=== PATIENT | female | born 1960 | race Caucasian/White ===

== ENCOUNTER → 2018-09-28 | Outpatient (REF) | payer OTHER ==
[2018-09-28 14:52] LABS: FOLLICLE STIMULATING HORMONE 24.6 mIU/mL; LUTEINIZING HORMONE 12.9 mIU/mL
== END ==
LOC: M LAB REF 11:51
DX: N92.6 Irregular menstruation, unspecified (principal)

== ENCOUNTER 2019-01-14 08:13 | Day surgery (SDC) | payer OTHER ==
--- NOTE | 2018-12-27 14:32 | CR ---
DATE OF CONSULTATION: 12/21/2018 PREOPERATIVE CONSULTATION FOR: Dr. De Jesus for robotic-assisted hysterectomy 01/14/2019. Dear Dr. De Jesus: Thank you for asking me to see . Winifred Roach in preoperative consultation. She is, as you know, a 58-year-old female with a past medical history of diabetes, hypertension, obesity, presenting with menorrhagia and findings of large uterine fibroids. 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 She is battling upper respiratory infection (URI) but no fevers or chills; only some white phlegm production with some fullness in her ears, throat, sinus. She has been using vitamin C and ProAir. Patient reports she did get her flu shot. Patient has known hypertension. Denies any chest pain, palpitations, syncope, or presyncope. Patient has diabetes type 2. She admits noncompliance with diet and exercise. She did increase her metformin to 1500 mg a day 3 months ago and has followup blood work shortly. Patient reports intermittent bouts of palpitations, chronic, stable, lasting 3 seconds. Had a previous echocardiogram, which showed no pathology. REVIEW OF SYSTEMS: Otherwise, negative. Denying fevers or chills, chest pain, or shortness of breath. PAST MEDICAL HISTORY: 1. Morbid obesity. 2. Hyperlipidemia. 3. Hypertension. 4. Type 2 diabetes. 5. Non-allergic rhinitis. 6. History of panic attacks. 7. Sinus surgery 1996. 8. Menorrhagia secondary to uterine fibroids. MEDICATIONS: - aspirin 81 mg daily - fluticasone as needed - metformin XR 500 mg three daily - lisinopril 10 mg daily - multivitamin daily - ProAir as needed - vitamin C daily - vitamin D3 daily DRUG ALLERGIES: None. 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 Happily . Two adopted adult children. Never smoked. Occasional alcohol. FAMILY HISTORY: Father with hypertension, atrial fibrillation, Ysyxn-Opuombsjq-Yvqrc (WPW), basal cell carcinoma (CA), of acute leukemia at 81. Mother with ocular skin cancer with metastases (mets) to the liver. A brother with type 2 diabetes. A sister with depression and posttraumatic stress disorder (PTSD). PHYSICAL EXAMINATION: Obese female in no acute distress. Vital signs: Are weight 278 with a body mass index (BMI) of 47, oxygen saturation is 95%, blood pressure 136/74 with a heart rate of 88. HEENT: Head is normocephalic. Pupils equal, reactive to light. Extraocular movements are intact. She wears eyeglasses. Conjunctivae not injected. Sclerae anicteric. Vision grossly normal. Tympanic membrane, external auditory canals within normal limits. Tongue is midline. Posterior pharynx without inflammation. Neck: Is supple. No thyromegaly, jugular venous distention (JVD), or carotid bruits. Respiratory: Clear to auscultation. Resonant to percussion. Breasts: Exam deferred. Cardiovascular: Soft systolic murmur. Abdomen: Obese, soft, nontender. No hepatosplenomegaly. Extremities: No cyanosis, clubbing, or edema. LABORATORY DATA: EKG: Normal sinus rhythm, rate of 85, axis of 19, normal TX, QRS, QTc interval. 12/21/2018 normal CBC, med profile, except for a sugar of 166. Her A1c is 8.3. IMPRESSION: Ms. Winifred Hearn, a 58-year-old female with multiple cardiovascular risk factors, including type 2 diabetes, hypertension, hyperlipidemia, has no signs or symptoms indicative of cardiovascular ischemia and is felt to be at low risk for cardiovascular complications from the proposed surgical intervention, which can be further minimized by the following: PROBLEMS: 1. Diabetes 2. Hold metformin 2 days prior to surgery. Because A1c not at goal, I have recommended increasing to 2000 mg daily. Baby aspirin should be held 1 week prior to surgery. 2. Hypertension. Hold lisinopril morning of surgery. 3. Hyperlipidemia. Continue with diet, exercise, weight loss. 4. Allergic rhinitis, some increased symptoms. She will add back Flonase, saline, and call if she develops any fevers or chills. She has had her flu shot. 5. Obesity. Diet and exercise. 6. Palpitations, chronic, stable. No need for further evaluation/treatment. Has no associated concerning symptoms, and systolic murmur is barely audible. Thank you very much for this consultation. Please call with questions or concerns.
[2019-01-14] VITALS (8 sets, daily range): BP systolic 101–179; BP diastolic 58–85; O2SAT 96
[~2019-01-14] VITALS: Ht 165.1 cm; Wt 123.4 kg
[~2019-01-14 08:13] MED LIST: ASPI1TAB PO; FLON1SPR NARES; LISI10TA4 PO; LR 1,000 ML IV ONE; METF500T13 PO; MULTTAB PO; PROAAER10 INH; VITA-112 PO; VITA500T PO
[2019-01-14 08:46] LABS: HEMATOCRIT 41.4 % (36.0-47.0); HEMOGLOBIN 13.7 g/dl (12.0-15.5); MEAN CORPUSCULAR HEMOGLOBIN 30.2 pg (27.0-33.0); MEAN CORPUSCULAR HGB CONC 33.1 g/dl (32.0-36.5); MEAN CORPUSCULAR VOLUME 91.2 fl (80.0-96.0); PLATELET COUNT, AUTOMATED 218 10^3/uL (150-450); RED BLOOD COUNT 4.54 10^6/uL (4.00-5.40); WHITE BLOOD COUNT 5.5 10^3/uL (4.0-10.0)
[2019-01-14] MEDS ORDERED: LIDOCAINE 2% INJ 100 MG/5 ML SDV (FOR ANES.) As Ordered ONE (09:03)
[2019-01-14] MEDS ORDERED: fentaNYL 250 MCG/5 ML INJECTION (J3010) As Ordered ONE (09:03)
[2019-01-14] MEDS ORDERED: dexameTHASONE 4 MG/ML 1ML VIAL (J1100) As Ordered ONE (09:03)
[2019-01-14] MEDS ORDERED: PROPOFOL 200 MG/20 ML VIAL As Ordered ONE (09:03)
[2019-01-14] MEDS ORDERED: MIDAZOLAM INJ 2 MG/2 ML VIAL (J2250) As Ordered ONE (09:03)
[2019-01-14] MEDS ORDERED: ONDANSETRON 4MG/2ML VIAL (J2405) As Ordered ONE (09:03)
[2019-01-14] MEDS ORDERED: ROCURONIUM BROMIDE 50 MG/5 ML VIAL As Ordered ONE ×3 (09:03→13:31)
[2019-01-14 09:15] LABS: HCG, SERUM QUALITATIVE NEGATIVE (NEGATIVE)
[2019-01-14] MEDS ORDERED: METHYLENE BLUE 0.5% (5MG/ML) 10 ML AMP (PROVAYBLUE)(Q9968 PER 1MG) As Ordered ONE (10:49)
[2019-01-14] MEDS ORDERED: HYDROmorphone HCL 2 MG/ML 1ML VIAL (J1170) As Ordered ONE (12:08)
[2019-01-14] MEDS ORDERED: GLYCOPYRROLATE INJ 0.2 MG/ML 2 ML VIAL As Ordered ONE (12:55)
[2019-01-14] MEDS ORDERED: KETOROLAC 60 MG/2 ML VIAL (J1885) As Ordered ONE (12:55)
[2019-01-14] MEDS ORDERED: NEOSTIGMINE 10 MG/10 ML VIAL (J2710) As Ordered ONE (12:55)
[2019-01-14] MEDS ORDERED: MORPHINE 1MG/ML IN 0.9% NACL 100ML IV BAG As Ordered ONE (15:00)
[2019-01-14] MEDS: LR 1,000 ML IV SCH ×2 (15:15→23:39)
[2019-01-14] MEDS ORDERED: METOCLOPRAMIDE INJ 10MG/2ML VIAL (J2765) IV PRN (15:15)
[2019-01-14] MEDS ORDERED: ONDANSETRON 4MG/2ML VIAL (J2405) IV PRN (15:15)
[2019-01-14] MEDS ORDERED: LR 1,000 ML IV SCH (15:15)
[2019-01-14] MEDS ORDERED: fentaNYL 100 MCG/2 ML INJECTION (J3010) IV PRN (15:15)
[2019-01-14] MEDS ORDERED: IBUPROFEN 600 MG TAB PO PRN (15:15)
[2019-01-14] MEDS ORDERED: EPIDURAL/PCA KEYS XX PRN (15:30)
[2019-01-14] MEDS ORDERED: MORPHINE 1MG/ML IN 0.9% NACL 100ML IV BAG IV PRN (15:30)
[2019-01-14] MEDS ORDERED: NALBUPHINE HCL 10 MG/ML AMP (J2300) IV PRN (15:30)
[2019-01-14] MEDS ORDERED: diphenhydrAMINE INJ 50MG/ML VIAL (J1200) IV PRN (15:30)
[2019-01-14] MEDS ORDERED: NALOXONE INJ 0.4 MG/1 ML VIAL (J2310) IV PRN (15:30)
--- NOTE | 2019-01-14 16:24 | RO ---
DATE OF PROCEDURE: 01/14/2019 PREOPERATIVE DIAGNOSIS: Pain, bleeding and fibroids. POSTOPERATIVE DIAGNOSIS: Pain, bleeding and fibroids. OPERATIVE PROCEDURE: Robotic-assisted hysterectomy with bilateral salpingo-oophorectomy. SURGEON: Shona De Jesus MD OPERATIONS/DISPATCH: Marian Mendieta ANESTHESIA: General endotracheal anesthesia. BRIEF DESCRIPTION OF PROCEDURE AND FINDINGS: Winifred was brought to the operating room where sufficient general endotracheal anesthesia was induced and she was prepped, draped and positioned in the usual fashion. With the high well supported cervix grasped with single tooth tenacula, brought down well enough to put in the sutures, the uterus was wounded to 13. We had a 17+ uterus by ultrasound in height, so I was not sure if I had perforated or not. As it turns out not. We secured the uterine manipulator in the usual fashion and placed a Randle with the ability to back fill as well. We then turned out attention to the abdomen. A transverse semilunar incision was made below the umbilicus. Sharp and blunt dissection were continued through subcutaneous tissue to the level of the rectus fascia where transverse incision was made and #0 Vicryl retention sutures were placed. The Moni cannula was placed into the peritoneal cavity under direct visualization in open laparoscopic technique. CO2 insufflation was then begun. After adequate CO2 insufflation, the peritoneal cavity was visualized. There were normal shiny peritoneal surfaces throughout. There was no excrescence, ascites nor exudate, but there was a very large uterus nearly to the umbilicus. It basically fills the pictures so you cannot really get a sense of how large it is because just the entire picture is uterus. Nevertheless, the ovaries were normal appearing. There was some left lower quadrant omental adhesions and bowel adhesions to the left sidewall, but no other significant intraabdominal findings other than the large uterus. We then placed two left-sided and one right-sided ports. With patient in Trendelenburg and docked to the robot, I began the robot work from the console. The infundibulopelvic ligament first on the left, then on the right side was carefully isolated. We did cut down with cold scissors those adhesions to the anterior abdomen to free up the bowel so that it would fall away with the Trendelenburg and then we isolated the infundibulopelvic ligament. We were able to see the ureter. The left ureters were relatively average in size. The ureter look a little enlarged as is consistent with maybe some compression from that large uterus. Certainly both peristalsed normally, but the subjective appearance of the right ureter was a little enlarged. Anyway, the infundibulopelvic ligament was isolated on the left side, cauterized with the bipolar cautery and then cut with the Metzenbaum robotic scissors. We then carefully dissected our way through the mesentery to the round ligament which was somewhat shortened due to the height of the uterus and angled upward, but we were readily able to cauterize and transect this and then dissect through the broad ligament anteriorly. The broad ligament was a little more vascular than typical, but we had a good view of that ureter, so we cauterized and transected the peritoneum there and then carefully began the peritoneal dissection for the bladder flap. We backed filled the bladder so we could really delineate the bladder well and then let it down and then turned out attention to the right side where the infundibulopelvic ligament was isolated, carefully transected and dissection continued to the round ligament which was carefully cauterized and transected and then the broad and the right side dissected down as well and the bladder flap created on the right side as well. The broad ligament dissected posteriorly as well to let the ureters fall away. We then were able to identify that there was more recruited blood supply in the uterines than typical so we carefully cauterized both sides working one side then the other without transecting them to start, so that we could diminish some of that blood supply and get some of that pressure down before we went ahead and started cutting. Then, we had to do several layers because there were more vessels than is typical, which was totally expected with the degree of fibroid development. Having controlled the uterine blood supply, we then made a colpotomy anteriorly down to the cup of the uterine manipulator, carefully incised around the cervix and then delivered the cervix into the vagina. We had good hemostasis from above and so I went below. We knew we would have to morcellate this uterus manually. Of course we did not use the automated morcellator. We knew we would have cut the uterus manually in this patient who has an over 17 cm tall, over 10 wide by 8 wide uterus who has not had children, so I went below. We undocked the robot so that we could have easier access vaginally and elevated her legs a little, so that we had better access. We carefully replaced the uterine manipulator with single tooth tenacula and then transected the cervix vertically leaving half the uterus behind and trying to draw down that left cornu. We carefully virginie down the uterus and segments, delivering that left side piece by piece until we could get enough of the uterus dissected that the mass was small enough that the uterus could be delivered. So the fundus was delivered intact with all the fibroids and attached ovaries and tubes, but the cervix itself and the inferior aspect of the uterus were attached and were delivered in a few pieces first just to using the SuperCut scissors and tenacula to carefully bring that uterus down. We then placed a moist lap in the vagina to hold pneumoperitoneum, so I could go back to the robot to complete closure of the cuff. Could visualize the pelvis and confirm the absence of unexpected injury and then using V-Loc suture, closed the cuff. We had good approximation and hemostasis and of course incorporated those uterosacrals for good support of the vaginal cuff. Then let the pneumoperitoneum down and again confirmed good hemostasis and ended the procedure by letting the CO2 out, removing the instruments, closing that fascial wound at the umbilicus with #0 Vicryl and then #3-0 Vicryl in a subcuticular stitch was used for all four wounds and dry sterile dressings were then applied. Estimated blood loss for the procedure about 300 mL. Fluids replacement was Crystalloid. Complications: None. CONDITION AND DISPOSITION: Winifred tolerated the procedure well and was recovering in the recovery room in good condition.
[2019-01-15 02:00] VITALS: BP 145/68
[2019-01-15 06:00] VITALS: BP_SYST 120; BP_SYST 96; BP_DIAS 51; BP_DIAS 55
[2019-01-15] MEDS ORDERED: NORCO, ANEXSIA 5/325MG TABLET (HYDROcodone/ACETAMINOPHEN) PO PRN (06:00)
[2019-01-15 06:04] LABS: HEMATOCRIT 33.2 % (36.0-47.0); MEAN CORPUSCULAR HEMOGLOBIN 30.2 pg (27.0-33.0); MEAN CORPUSCULAR HGB CONC 33.4 g/dl (32.0-36.5); MEAN CORPUSCULAR VOLUME 90.5 fl (80.0-96.0); PLATELET COUNT, AUTOMATED 211 10^3/uL (150-450); RED BLOOD COUNT 3.67 10^6/uL (4.00-5.40)
[2019-01-15 06:11] LABS: HEMOGLOBIN 11.1 g/dl (12.0-15.5)
[2019-01-15] MEDS: LR 1,000 ML IV SCH (07:15)
[2019-01-15 07:46] VITALS: O2SAT 96
[2019-01-15 08:33] VITALS: BP 120/55
[2019-01-15] MEDS ORDERED: ADVI200T PO (08:44)
[2019-01-15] MEDS ORDERED: NORCOTAB PO (08:56)
[2019-01-15] MEDS ORDERED: MULTIVITAMINS/MINERALS THERAP 1 TAB PO SCH (09:00)
[2019-01-15] MEDS ORDERED: ASCORBIC ACID 500 MG TAB PO SCH (09:00)
[2019-01-15] MEDS ORDERED: LISINOPRIL 10 MG TAB PO SCH (09:00)
== END 2019-01-15 09:25 | disposition home or self-care (01) ==
LOC: M SDC 08:13 → M MS5PR 15:58 → M SDC 01-15 09:25
PROVIDERS: ATTEND Obstetrics & Gynecology
DX: R10.2 Pelvic and perineal pain (principal); N93.9 Abnormal uterine and vaginal bleeding, unspecified; D25.1 Intramural leiomyoma of uterus; D25.2 Subserosal leiomyoma of uterus; N80.1 Endometriosis of ovary; J45.909 Unspecified asthma, uncomplicated; I10 Essential (primary) hypertension; E11.9 Type 2 diabetes mellitus without complications; E66.9 Obesity, unspecified; G43.909 Migraine, unspecified, not intractable, without status migrainosus; R06.83 Snoring; Z85.828 Personal history of other malignant neoplasm of skin; Z78.0 Asymptomatic menopausal state; Z68.42 Body mass index [BMI] 45.0-49.9, adult; Z79.899 Other long term (current) drug therapy; Z79.82 Long term (current) use of aspirin; Z79.84 Long term (current) use of oral hypoglycemic drugs
CPT/HCPCS: 36415; 58571; 84703; 85027; 86850; 86900; 86901; 88309; J0690; J1100; J1170; J1885; J2250; J2405; J2710; J3010

== ENCOUNTER → 2025-09-26 | Outpatient (CLI) | payer OTHER ==
[~2025-09-26] MED LIST changes: +ADVI200T PO; -ASPI1TAB PO; +ASPI81TA26 PO; +HYDR-3715 PO; +LISI10TA22 PO; -LISI10TA4 PO; -LR 1,000 ML IV ONE; +VITA-243 PO; -VITA500T PO
== END ==
LOC: M WHC 09:27
PROVIDERS: ATTEND Internal Medicine
DX: Z12.31 Encounter for screening mammogram for malignant neoplasm of breast (principal)

== ENCOUNTER → 2025-10-18 | Outpatient (CLI) | payer OTHER | LOC: M WHC 08:47 | PROVIDERS: ATTEND Internal Medicine | DX: R92.8 Other abnormal and inconclusive findings on diagnostic imaging of breast (principal); N63.10 Unspecified lump in the right breast, unspecified quadrant | CPT/HCPCS: 76642; 77065; G0279 ==

== ENCOUNTER → 2025-10-26 | Outpatient (CLI) | payer MEDICARE, OTHER ==
[2025-10-26 08:00] VITALS: TEMP 98.5
[2025-10-26 08:35] VITALS: BP 136/76; O2SAT 96
== END ==
LOC: M WHCPRO 07:53
PROVIDERS: ATTEND Internal Medicine
DX: C50.511 Malignant neoplasm of lower-outer quadrant of right female breast (principal); N63.13 Unspecified lump in the right breast, lower outer quadrant